=== PATIENT | male | born 1985 | race American Indian/Alaskan Native ===

== ENCOUNTER 2024-06-18 14:20 | Inpatient (IN) | payer OTHER ==
[2024-06-18 15:48] VITALS: BMI 35.8
[2024-06-18] MEDS ORDERED: POLYETHYLENE GLYCOL (HEALTHYLAX) 3350 17 GM PACKET PO PRN (20:06)
[2024-06-18] MEDS ORDERED: NALOXONE (NYS OPIOID OVERDOSE PROGRAM) 4 MG/0.1 ML SPRAY NS PRN (20:06)
[2024-06-18] MEDS ORDERED: ACETAMINOPHEN 325 MG TABLET (FP) PO PRN (20:06)
[2024-06-18] MEDS ORDERED: DICYCLOMINE HCL 10 MG CAPSULE PO PRN (20:06)
[2024-06-18] MEDS ORDERED: NICOTINE POLACRILEX 2 MG GUM BUC PRN (20:06)
[2024-06-18] MEDS ORDERED: ONDANSETRON *ODT* 4 MG TABLET SL PRN (20:06)
[2024-06-18] MEDS ORDERED: IBUPROFEN 600 MG TABLET (FP) PO PRN (20:06)
[2024-06-18] MEDS ORDERED: LOPERAMIDE HCL 2 MG CAPSULE PO PRN (20:06)
[2024-06-18] MEDS ORDERED: MAGNESIUM HYDROX 2400MG/30ML ORAL SUSPENSION 30 ML CUP PO PRN (20:06)
[2024-06-18] MEDS ORDERED: BENZOCAINE/MENTHOL (CHLORASEPTIC ) LOZENGE MM PRN (20:06)
[2024-06-18] MEDS ORDERED: NICOTINE POLACRILEX 2 MG LOZENGE BC PRN (20:06)
[2024-06-18] MEDS ORDERED: BISMUTH SUBSALICYLATE 524 MG/30 ML PO PRN (20:06)
[2024-06-18] MEDS ORDERED: MAG HYDROX/AL HYDROX/SIMETH 30 ML UNIT-DOSE CUP PO PRN (20:06)
[2024-06-18] MEDS ORDERED: IBUPROFEN 400 MG TABLET (FP) PO PRN (20:06)
[2024-06-18] MEDS ORDERED: guaiFENesin 600 MG TABLET.ER (FP) PO PRN (20:06)
[2024-06-18] MEDS ORDERED: BENZONATATE 200 MG CAPSULE PO PRN (20:06)
[2024-06-18] MEDS: diazePAM 5 MG TABLET PO SCH (22:52)
[2024-06-18] MEDS: ATORVASTATIN CA 40 MG TABLET (FP) PO SCH (22:52)
[2024-06-18] MEDS: MELATONIN 5 MG TABLETS PO SCH (22:52)
[2024-06-18] MEDS: THIAMINE 100 MG TABLET PO SCH (22:52)
[2024-06-18] MEDS: INSULIN ASPART SLIDING SCALE (NOVOLOG) 1 VIAL SQ SCH (22:53)
[2024-06-18] MEDS: BUPRENORPHINE/NALOXONE 4 MG/1 MG FILM PACKET SL SCH (22:53)
[2024-06-19] MEDS: metFORMIN HCL 500 MG TABLET (FP) PO SCH (06:27)
[2024-06-19] MEDS ORDERED: LOSARTAN POTASSIUM 25 MG TABLET PO SCH (10:00)
[2024-06-19] MEDS: PRENATAL VITAMINS W/ FOLIC ACID TABLET (FP) PO SCH (10:37)
[2024-06-19] MEDS: amLODIPine BESYLATE 10 MG TABLET (FP) PO SCH (10:39)
[2024-06-19] MEDS: HYDROCHLOROTHIAZIDE 25 MG TABLET (FP) PO SCH (10:39)
[2024-06-19] MEDS: VALSARTAN 40 MG TABLET PO SCH (11:29)
[2024-06-19 11:51] LABS: HEMATOCRIT 45.6 % (35.4-49); HEMOGLOBIN 15.4 GM/dL (11.7-16.9); MCH 28.5 pg (25.7-33.7); MCHC 33.9 g/dl (32.0-35.9); MEAN CELL VOLUME 84.2 fl (80-96); MEAN PLT VOLUME 9.6 fl (7.5-11.1); PLATELET COUNT 230 10^3/uL (134-434); RBC 5.41 M/mm3 (4.00-5.60); RDW 14.2 % (11.9-15.9); WHITE BLOOD COUNT 6.3 K/mm3 (4.0-10.0)
[2024-06-19 11:57] LABS: POTASSIUM 3.4 mmol/L (3.5-5.1)
[2024-06-19] MEDS: hydrOXYzine PAMOATE 25 MG CAPSULE (FP) PO PRN (11:57)
[2024-06-19 12:04] LABS: CALCIUM 9.5 mg/dL (8.5-10.1)
[2024-06-19 12:05] LABS: ALBUMIN 3.3 g/dl (3.4-5.0); BLOOD UREA NITROGEN 15.2 mg/dL (7-18)
[2024-06-19 12:08] LABS: CREATININE 0.8 mg/dL (0.55-1.3)
[2024-06-19 12:11] LABS: BILIRUBIN,TOTAL 0.4 mg/dL (0.2-1); TOT PROT 6.7 g/dl (6.4-8.2)
[2024-06-20] MEDS: diazePAM 5 MG TABLET PO SCH (06:01)
[2024-06-20] MEDS: diazePAM 5 MG TABLET PO PRN (17:26)
[2024-06-20] MEDS: METHOCARBAMOL 500 MG TABLET PO PRN (23:00)
[2024-06-21] MEDS: diazePAM 5 MG TABLET PO SCH (06:09)
[2024-06-22] MEDS: diazePAM 5 MG TABLET PO ONE (06:58)
[2024-06-22 09:24] VITALS: BP 141/98; PULSE 82; RESP 18; TEMP 98.2
== END 2024-06-22 09:57 | disposition home or self-care (01) | DRG 773 ==
LOC: YASAS 14:20 → Y6N 20:55 → Y3N 06-19 02:01 → Y6N 06-19 02:04
PROVIDERS: ADMIT Allergy & Immunology; ATTEND Surgery
PROC: HZ2ZZZZ Detoxification Services for Substance Abuse Treatment (ICD-10-PCS; principal; 2024-06-18)
DX: F13.230 Sedative, hypnotic or anxiolytic dependence with withdrawal, uncomplicated (principal); F11.20 Opioid dependence, uncomplicated; F16.20 Hallucinogen dependence, uncomplicated; F15.20 Other stimulant dependence, uncomplicated; F17.210 Nicotine dependence, cigarettes, uncomplicated; E87.6 Hypokalemia; E78.5 Hyperlipidemia, unspecified; I10 Essential (primary) hypertension; E11.9 Type 2 diabetes mellitus without complications; Z79.84 Long term (current) use of oral hypoglycemic drugs
CPT/HCPCS: 36415; 80053; 80305; 82962; 84132; 85027; 86780; 93005; 93010